=== PATIENT | male | born 1945 | race Caucasian/White ===

== ENCOUNTER → 2020-01-30 07:33 | Outpatient (CLI) | payer OTHER, SELFPAY ==
[2020-01-30 08:49] LABS: Add Manual Diff / Slide Review NO; Basophils Absolute Auto 0 /uL (0-100); Basophils Percent Auto 0.6 % (0-2); Eosinophils Absolute Auto 100 /uL (0-450); Eosinophils Percent Auto 2.2 % (2-4); Hematocrit 40.7 % (41-53); Hemoglobin 13.9 g/dL (13.5-17.5); Lymphocytes Absolute Auto 1300 /uL (1100-4500); Lymphocytes Percent Auto 30.2 % (25-40); Mean Corpuscular HGB Conc 34.1 % (30-36); Mean Corpuscular Hemoglobin 32.1 PG (26-34); Mean Corpuscular Volume 94.1 fL (80-100); Monocytes Absolute Auto 300 /uL (0-900); Monocytes Percent Auto 8.3 % (3-14); Neutrophils Absolute Auto 2400 /uL (1500-7000); Neutrophils Percent Auto 58.7 % (50-75); Platelet Count 278 X10^3/uL (150-400); Red Blood Cell Count 4.32 X10^6/uL (4.5-5.9); White Blood Cell Count 4.1 X10^3/uL (4.5-11.0)
[2020-01-30 09:10] LABS: BUN Creatinine Ratio 21.2 (6-22); Blood Urea Nitrogen 18 mg/dL (9-20); Calcium 9.7 mg/dL (8.4-10.2); Carbon Dioxide 31 mmol/L (22-32); Chloride 104 mmol/L (98-107); Cholesterol 246 mg/dL (140-199); Estimated Glomerular Filt Rate > 60.0 mL/min (>60); Glucose 97 mg/dL (80-110); HDL Cholesterol 65 mg/dL (40-60); HEMOLYSIS < 15 (0-50); LDL Cholesterol Calculated 160 mg/dL (<100); Potassium 4.4 mmol/L (3.4-5.1); Sodium 139 mmol/L (137-145); Triglycerides 106 mg/dL (35-150)
== END ==
PROVIDERS: PCP Family Medicine; Referring Provider Family Medicine; Visit Provider Family Medicine
DX: Z13.220 Encounter for screening for lipoid disorders (principal); Z82.49 Family history of ischemic heart disease and other diseases of the circulatory system
CPT/HCPCS: 36415; 80048; 80061; 85025

== ENCOUNTER → 2020-04-29 07:58 | Outpatient (CLI) | payer OTHER, SELFPAY ==
[2020-04-29 10:06] LABS: Cholesterol 182 mg/dL (140-199); HDL Cholesterol 68 mg/dL (40-60); LDL Cholesterol Calculated 103 mg/dL (<100); Triglycerides 56 mg/dL (35-150)
== END ==
PROVIDERS: PCP Family Medicine; Referring Provider Family Medicine; Visit Provider Family Medicine
DX: E78.5 Hyperlipidemia, unspecified (principal)
CPT/HCPCS: 36415; 80061

== ENCOUNTER → 2020-08-13 07:58 | Outpatient (CLI) | payer OTHER, SELFPAY ==
[2020-08-13 08:48] LABS: Add Manual Diff / Slide Review NO; Basophils Absolute Auto 0 /uL (0-100); Basophils Percent Auto 0.5 % (0-2); Eosinophils Absolute Auto 100 /uL (0-450); Eosinophils Percent Auto 2.2 % (2-4); Hematocrit 41.2 % (41-53); Lymphocytes Absolute Auto 1400 /uL (1100-4500); Lymphocytes Percent Auto 32.9 % (25-40); Mean Corpuscular HGB Conc 33.9 % (30-36); Mean Corpuscular Hemoglobin 31.6 PG (26-34); Mean Corpuscular Volume 93.3 fL (80-100); Monocytes Absolute Auto 300 /uL (0-900); Monocytes Percent Auto 7.7 % (3-14); Neutrophils Absolute Auto 2500 /uL (1500-7000); Neutrophils Percent Auto 56.7 % (50-75); Platelet Count 265 X10^3/uL (150-400); Red Blood Cell Count 4.42 X10^6/uL (4.5-5.9); Red Cell Distribution Width 12.8 % (11.6-14.8); White Blood Cell Count 4.4 X10^3/uL (4.5-11.0)
[2020-08-13 09:16] LABS: Alanine Aminotransferase 43 IU/L (<50); Albumin 4.7 g/dL (3.5-5.0); Albumin Globulin Ratio 1.6 (1.0-2.8); Alkaline Phosphatase 64 U/L (38-126); Aspartate Aminotransferase 50 IU/L (17-59); BUN Creatinine Ratio 24.1 (6-22); Bilirubin Total 0.7 mg/dL (0.2-1.3); Blood Urea Nitrogen 19 mg/dL (9-20); Calcium 9.8 mg/dL (8.4-10.2); Carbon Dioxide 26 mmol/L (22-32); Chloride 106 mmol/L (98-107); Cholesterol 179 mg/dL (140-199); Estimated Glomerular Filt Rate > 60.0 mL/min (>60); Globulin 2.9 g/dL (1.7-4.1); Glucose 105 mg/dL (80-110); HDL Cholesterol 61 mg/dL (40-60); HEMOLYSIS < 15 (0-50); LDL Cholesterol Calculated 101 mg/dL (<100); Potassium 4.1 mmol/L (3.4-5.1); Sodium 140 mmol/L (137-145); Total Protein 7.6 g/dL (6.3-8.2); Triglycerides 86 mg/dL (35-150)
[2020-08-13 09:35] LABS: Prostate Specific Antigen Scrn 0.734 ng/mL (0.1-4.0)
== END ==
PROVIDERS: PCP Family Medicine; Referring Provider Family Medicine; Visit Provider Family Medicine
DX: E78.00 Pure hypercholesterolemia, unspecified (principal); R03.0 Elevated blood-pressure reading, without diagnosis of hypertension; Z12.5 Encounter for screening for malignant neoplasm of prostate
CPT/HCPCS: 36415; 80053; 80061; 85025; G0103

== ENCOUNTER 2022-03-28 13:56 | Emergency (ER) | payer OTHER, SELFPAY ==
[2022-03-28] VITALS (7 sets, daily range): BP systolic 149–201; BP diastolic 85–107; PULSE 65–89; RESP 15–18; TEMP 36.5; O2SAT 97–99; BMI 22.4
--- NOTE | 2022-03-28 14:11 | DI.RAD.S_ITS ---
PROCEDURE: XR CHEST 1V INDICATIONS: chest pain TECHNIQUE: One view of the chest was acquired. COMPARISON: None. FINDINGS: Surgical changes and devices: None. Lungs and pleura: Lungs are clear. No pleural effusions or pneumothorax. Biapical pulmonary scarring Mediastinum: Mediastinal contours appear normal. Heart size is normal. Atherosclerotic vascular calcification noted in the aortic arch. Bones and chest wall: No suspicious bony lesions. Overlying soft tissues appear unremarkable. IMPRESSION: No acute cardiopulmonary findings Approved by: Tushar Helton M.D. on 03/28/2022 at 15:43
[2022-03-28 14:30] LABS: Add Manual Diff / Slide Review NO; Basophils Absolute Auto 0 /uL (0-100); Basophils Percent Auto 0.6 % (0-2); Eosinophils Absolute Auto 100 /uL (0-450); Eosinophils Percent Auto 1.4 % (2-4); Hematocrit 38.3 % (41-53); Hemoglobin 13.1 g/dL (13.5-17.5); Lymphocytes Absolute Auto 1200 /uL (1100-4500); Lymphocytes Percent Auto 22.9 % (25-40); Mean Corpuscular HGB Conc 34.2 % (30-36); Mean Corpuscular Hemoglobin 32.1 PG (26-34); Mean Corpuscular Volume 93.9 fL (80-100); Monocytes Absolute Auto 400 /uL (0-900); Monocytes Percent Auto 8.1 % (3-14); Neutrophils Absolute Auto 3600 /uL (1500-7000); Platelet Count 259 X10^3/uL (150-400); Red Blood Cell Count 4.08 X10^6/uL (4.5-5.9); Red Cell Distribution Width 13.3 % (11.6-14.8); White Blood Cell Count 5.4 X10^3/uL (4.5-11.0)
[2022-03-28 14:46] LABS: Prothrombin Time 11.5 SECONDS (10.1-12.7)
[2022-03-28 14:47] LABS: Alanine Aminotransferase 36 IU/L (<50); Albumin 4.6 g/dL (3.5-5.0); Albumin Globulin Ratio 1.5 (1.0-2.8); Alkaline Phosphatase 63 U/L (38-126); Aspartate Aminotransferase 41 IU/L (17-59); BUN Creatinine Ratio 26.1 (6-22); Bilirubin Total 0.5 mg/dL (0.2-1.3); Blood Urea Nitrogen 23 mg/dL (9-20); Calcium 9.1 mg/dL (8.4-10.2); Carbon Dioxide 22 mmol/L (22-32); Chloride 105 mmol/L (98-107); Creatine Kinase 321 U/L (55-170); Estimated Glomerular Filt Rate > 60 mL/min (>60); Globulin 3.1 g/dL (1.7-4.1); Glucose 123 mg/dL (80-110); Lipase 95 U/L (23-300); Magnesium 2.1 mg/dL (1.6-2.3); Potassium 4.2 mmol/L (3.4-5.1); Sodium 140 mmol/L (137-145); Total Protein 7.7 g/dL (6.3-8.2)
[2022-03-28 14:49] LABS: PTT Partial Thromboplastin Tim 30 SECONDS (26-36)
[2022-03-28 14:57] LABS: Troponin I < 0.012 ng/mL (0.01-0.034)
[2022-03-28 15:02] LABS: CKMB % Relative Index 1.8 % (1.5-5.0); Creatine Kinase MB 5.89 ng/mL (<2.37); HEMOLYSIS 20 (0-50)
--- NOTE | 2022-03-28 15:19 | ED.ARRPALP ---
HPI - Arrhythmia/Palpitations General Chief Complaint: Arrhythmia/Palpitations Stated Complaint: high pulse rate Time Seen by Provider: 03/28/22 15:03 History of Present Illness HPI narrative: Patient is a healthy 77-year-old male history of the D me a presents today with palpitations. For the last 5 days he has had some heart palpitations he has had his heart rate as high as 180. He has been monitoring his blood pressure and heart rate ever since. He says he will have palpitations and they last for just a couple of minutes and then they go away. His blood pressures have been good in the 130s and 40s even though he is hypertensive here in the emergency department. Today they called the [place] nurse who recommended that he come to the ED. He did have any new or worsening symptoms. He has not passed out he denies any numbness tingling or weakness. No shortness of breath no fever no chills no recent travel no abdominal pain no nausea or vomiting. Just intermittent palpitations. Related Data Previous Rx's Medication Instructions Recorded atorvastatin 20 mg tablet See Rx Instructions .Route 09/11/21 .COMPLEX #90 tabs Allergies Allergy/AdvReac Type Severity Reaction Status Date / Time No Known Drug Allergies Allergy Unverified 06/04/20 10:29 Review of Systems Review of Systems Narrative: GENERAL: Denies chills, fatigue, malaise, fever, sweats, travel HEENT: Denies sinus pain, ear pain, sore throat, difficulty swallowing, neck pain RESPIRATORY: Denies dyspnea, cough, wheezing, hemoptysis, sputum. CARDIOVASCULAR: See HPI GASTROINTESTINAL: Denies nausea, vomiting, abdominal pain, diarrhea, constipation, melena. : Denies dysuria, frequency, incontinence, hematuria, urinary retention, flank pain. MUSCULOSKELETAL: Denies weakness, joint pain, or bony pain SKIN: No rash, no erythema, no pruritus NEUROLOGIC: Denies weakness, dizziness, headache, numbness, change in speech, confusion PSYCHIATRIC: No concerning psychosocial issues. 12 point review of systems is negative except for those stated above and HPI Patient History Medical History Elevated blood pressure reading without diagnosis of hypertension Hearing loss Hepatitis A (~1979) Hyperlipidemia Tinnitus (~1947) White coat syndrome with high blood pressure but without hypertension Surgical History History of hand surgery (~1980) Family History Father History of heart disease Hyperlipidemia Hypertension Mother Alzheimer's disease Brother Cancer Brother History of heart disease Hyperlipidemia Grandfather Cancer Grandmother Alzheimer's disease Grandfather No problems noted. Grandmother History of heart disease Family/Other Mental health problem Exam Initial Vital Signs Initial Vital Signs: Vital Signs Temperature 97.7 F 03/28/22 14:08 Pulse Rate 85 03/28/22 14:08 Respiratory Rate 18 03/28/22 14:08 Blood Pressure 201/107 H 03/28/22 14:08 Pulse Oximetry 99 03/28/22 14:08 Oxygen Delivery Method 03/28/22 14:08 GENERAL: Pleasant well-appearing 77-year-old male and in no acute distress. HEENT: Head atraumatic,EOMI, pupils reactive, face symmetric, moist mucous membranes CARDIOVASCULAR: Regular rate and rhythm without murmurs, rubs or gallops. RESPIRATORY: Breath sounds equal bilaterally, no wheezes rales or rhonchi. ABDOMEN: Soft, nontender. Normoactive bowel sounds all 4 quadrants. No guarding or rebound. EXTREMITIES: Normal range of motion, no clubbing or edema. Neurovascularly intact NEUROLOGICAL: Alert and oriented x4.Normal gait and speech. SKIN: Warm, dry, no laceration, no petechiae, no rashes or lesions. Course Orders Ordered: ED Orders 03/28/22 14:11 XR chest 1V Stat 03/28/22 14:17 BNP [NT-proBNP (BNP-Adult 18+)] Stat Complete Blood Count AUTO DIFF Stat Comprehensive Metabolic Panel Stat D Dimer Stat Lipase Stat Magnesium Stat Partial Thromboplastin Time Stat Prothrombin Time INR Stat TSH [Thyroid Stimulating Hormone] Stat Troponin & CK Cardiac Panel Stat EKG-12 Lead Stat Vital Signs Vital signs: Vital Signs - 8 hr 03/28/22 14:08 03/28/22 15:00 03/28/22 15:05 Temperature 97.7 F Pulse Rate 85 89 78 Respiratory Rate 18 16 Blood Pressure 201/107 H Pulse Oximetry 99 97 98 Oxygen Delivery Method Room Air Room Air 03/28/22 15:05 03/28/22 15:30 03/28/22 16:00 Temperature Pulse Rate 74 Respiratory Rate 18 Blood Pressure 171/85 H 149/88 H Pulse Oximetry 98 Oxygen Delivery Method 03/28/22 16:00 03/28/22 16:30 03/28/22 17:00 Temperature Pulse Rate 67 65 Respiratory Rate 15 16 Blood Pressure 170/91 H Pulse Oximetry 98 97 Oxygen Delivery Method 03/28/22 17:00 Temperature Pulse Rate 68 Respiratory Rate Blood Pressure Pulse Oximetry 98 Oxygen Delivery Method MDM - Arrhythmia/Palpitations Lab Data Result diagrams: 03/28/22 14:17 03/28/22 14:17 Labs: Lab Results 03/28/22 03/28/22 03/28/22 Range/Units 14:17 14:17 14:17 WBC 5.4 (4.5-11.0) X10^3/uL RBC 4.08 L (4.5-5.9) X10^6/uL Hgb 13.1 L (13.5-17.5) g/dL Hct 38.3 L (41-53) % MCV 93.9 (80-100) fL MCH 32.1 (26-34) PG MCHC 34.2 (30-36) % RDW 13.3 (11.6-14.8) % Plt Count 259 (150-400) X10^3/uL Neut % (Auto) 67.0 (50-75) % Lymph % (Auto) 22.9 L (25-40) % [place] % (Auto) 8.1 (3-14) % Eos % (Auto) 1.4 L (2-4) % Baso % (Auto) 0.6 (0-2) % Neut # (Auto) 3600 (9136-5883) /uL Lymph # (Auto) 1200 (0542-3191) /uL [place] # (Auto) 400 (0-900) /uL Eos # (Auto) 100 (0-450) /uL Baso # (Auto) 0 (0-100) /uL PT 11.5 (10.1-12.7) SECONDS INR 1.0 (0.9-1.3) APTT 30 (26-36) SECONDS D-Dimer (<500) ng/ml Sodium 140 (137-145) mmol/L Potassium 4.2 (3.4-5.1) mmol/L Chloride 105 (98-107) mmol/L Carbon Dioxide 22 (22-32) mmol/L BUN 23 H (9-20) mg/dL Creatinine 0.88 (0.66-1.25) mg/dL Estimated GFR > 60 (>60) mL/min BUN/Creatinine Ratio 26.1 H (6-22) Glucose 123 H (80-110) mg/dL Calcium 9.1 (8.4-10.2) mg/dL Magnesium 2.1 (1.6-2.3) mg/dL Total Bilirubin 0.5 (0.2-1.3) mg/dL AST 41 (17-59) IU/L ALT 36 (<50) IU/L Alkaline Phosphatase 63 (38-126) U/L Total Creatine Kinase 321 H (55-170) U/L CK-MB (CK-2) 5.89 H (<2.37) ng/mL CK-MB (CK-2) Rel Index 1.8 (1.5-5.0) % Troponin I < 0.012 (0.01-0.034) ng/mL NT-Pro-B Natriuret Pep (<450) pg/mL Total Protein 7.7 (6.3-8.2) g/dL Albumin 4.6 (3.5-5.0) g/dL Globulin 3.1 (1.7-4.1) g/dL Albumin/Globulin Ratio 1.5 (1.0-2.8) Lipase 95 (23-300) U/L TSH (0.47-4.68) uIU/mL 03/28/22 03/28/22 03/28/22 Range/Units 14:17 14:17 14:17 WBC (4.5-11.0) X10^3/uL RBC (4.5-5.9) X10^6/uL Hgb (13.5-17.5) g/dL Hct (41-53) % MCV (80-100) fL MCH (26-34) PG MCHC (30-36) % RDW (11.6-14.8) % Plt Count (150-400) X10^3/uL Neut % (Auto) (50-75) % Lymph % (Auto) (25-40) % [place] % (Auto) (3-14) % Eos % (Auto) (2-4) % Baso % (Auto) (0-2) % Neut # (Auto) (8855-2039) /uL Lymph # (Auto) (5415-1710) /uL [place] # (Auto) (0-900) /uL Eos # (Auto) (0-450) /uL Baso # (Auto) (0-100) /uL PT (10.1-12.7) SECONDS INR (0.9-1.3) APTT (26-36) SECONDS D-Dimer 461 (<500) ng/ml Sodium (137-145) mmol/L Potassium (3.4-5.1) mmol/L Chloride (98-107) mmol/L Carbon Dioxide (22-32) mmol/L BUN (9-20) mg/dL Creatinine (0.66-1.25) mg/dL Estimated GFR (>60) mL/min BUN/Creatinine Ratio (6-22) Glucose (80-110) mg/dL Calcium (8.4-10.2) mg/dL Magnesium (1.6-2.3) mg/dL Total Bilirubin (0.2-1.3) mg/dL AST (17-59) IU/L ALT (<50) IU/L Alkaline Phosphatase (38-126) U/L Total Creatine Kinase (55-170) U/L CK-MB (CK-2) (<2.37) ng/mL CK-MB (CK-2) Rel Index (1.5-5.0) % Troponin I (0.01-0.034) ng/mL NT-Pro-B Natriuret Pep 125 (<450) pg/mL Total Protein (6.3-8.2) g/dL Albumin (3.5-5.0) g/dL Globulin (1.7-4.1) g/dL Albumin/Globulin Ratio (1.0-2.8) Lipase (23-300) U/L TSH 1.36 (0.47-4.68) uIU/mL Imaging Data Chest x-ray: Radiologist's Impresson: [address] [address] XRay Report Signed Patient: Elpidio Crane MR#: [id number] : 1945 Acct:[id number] Age/Sex: 77 / M Date of Service: 03/28/22 Loc: ED Accession Number: [id number] ?? Procedure: XR chest 1V Ordering Provider: Imelda Xiao D.O. PROCEDURE:? XR CHEST 1V ? INDICATIONS:? chest pain ? TECHNIQUE:? One view of the chest was acquired.? ? COMPARISON:? None. ? FINDINGS:? ? Surgical changes and devices:? None.? ? Lungs and pleura:? Lungs are clear.? No pleural effusions or pneumothorax.? Biapical pulmonary scarring ? Mediastinum:? Mediastinal contours appear normal.? Heart size is normal.? Atherosclerotic vascular calcification noted in the aortic arch. ? Bones and chest wall:? No suspicious bony lesions.? Overlying soft tissues appear unremarkable.? ? IMPRESSION:? No acute cardiopulmonary findings ? ? ? Approved by: Tushar Helton M.D. on 03/28/2022 at 15:43? ECG Data Interpretation: Normal sinus rhythm rate 79 VA interval 172 his QRS [address] changes no T-wave inversions MDM Narrative Medical decision making narrative: The patient overall appears well. Blood work is reassuring. He has had palpitations ongoing this week but no cause of why. At this time recommend outpatient Holter monitor. He has no evidence of coronary artery syndrome blood work is overall reassuring.. Chest x-ray is negative as well. He has a negative D-dimer unlikely to be pulmonary embolism. He is not hypoxic. He has no significant shortness of breath BNP is negative. No sign of infection. He really has no risk factors. Recommend at continue to check his blood pressure and heart rate Discharge Plan Departure Patient Disposition: Home Clinical Impression: Palpitations Instructions: Arrhythmias Activity Restrictions/Additional Instructions: *You have been diagnosed with palpitation *What to do: At this time I do recommend he wear Holter monitor to monitor your heart rate as an outpatient. Her primary care provider can help you with that. Please continue to monitor blood pressure and heart rate. You may just check her blood pressure 1 to 2 times daily *Continue to take medications as directed *Follow up with your primary care provider in 2-3 days or call [phone] *Return to ER if you should have persistent heart rate greater than 120 and lasting longer than 30 minutes, chest pain shortness of breath passing out or any new, worsening or concerning symptoms Prescriptions: No Action atorvastatin 20 mg tablet See Rx Instructions .ROUTE .COMPLEX Qty: 90 1RF Dose Instruction: Take 1 tablet (20 mg) by mouth at bedtime Rx Instructions: Take 1 tablet (20 mg) by mouth at bedtime Referrals: Carlos Daniels DO [Primary Care Provider] - Visit Report Forms: Patient Portal/API
[2022-03-28 16:29] LABS: D Dimer 461 ng/ml (<500)
[2022-03-28 16:41] LABS: NT-proBNP (BNP-Adult 18+) 125 pg/mL (<450)
[2022-03-28 17:10] LABS: Thyroid Stimulating Hormone 1.36 uIU/mL (0.47-4.68)
== END 2022-03-28 17:16 | disposition home or self-care (01) ==
PROVIDERS: Emergency Provider Emergency Medicine; PCP Family Medicine
DX: R00.2 Palpitations (principal); R07.9 Chest pain, unspecified
CPT/HCPCS: 71045; 80053; 82550; 82553; 83690; 83735; 83880; 84443; 84484; 85025; 85379; 85610; 85730; 93005; 99282; 99284

== ENCOUNTER → 2022-04-23 13:12 | Outpatient (CLI) | payer OTHER, SELFPAY ==
--- NOTE | 2022-05-20 07:41 | P.HOLT.S_ITS ---
Proposal Coordinator Report Referral & Results Date Patient Seen: 04/23/22 Requesting provider: Carlos Daniels Indication: Palpitations Duration of monitoring (days): 14 Diary information: There were no patient events to review Data: Minimum heart rate identified was 52 beats per minute at 05:56 on 05/03/2022 Maximum sinus heart rate was 152 beats per minute at 07:41 on 04/30/2022 Maximum overall heart rate was 174 beats per minute at 14:56 on 04/24/2022 during an episode of atrial fibrillation Less than 1% of identified beats were supraventricular ectopic in origin which would classify them as rare Approximately 1.1% of identified beats were ventricular ectopic in origin which would classify them as occasional this included up to 10 seconds of ventricular trigeminy and 5 seconds of ventricular bigeminy There were 55 runs of SVT with the fastest being a 5 beat run at a rate of 152 beats per minute and the longest lasting 9 minutes 25 seconds at a rate of 122 beats per minute which suggest possibly atrial tachycardia rather than true SVT Atrial fibrillation also occurred with heart rate ranging between 72 and 174 beats per minute with the longest duration lasting 1 hour 3 minutes. Overall atrial fibrillation was identified in less than 1% of identified beats There was 1 episode of nonsustained monomorphic ventricular tachycardia that was 5 beats in duration at a rate of 119 beats per minute There were no pauses of 3 seconds or longer identified on this study Impression: 14 day color television console monitor without patient events to correlate with anyanyone particular dysrhythmia makes it very difficult to identify source of symptoms Patient did have episodes of atrial fibrillation although overall burden was less than 1%, as above Patient also with very rare very brief episodes of SVT Patient also with occasional PVCs Clinical correlation suggested
== END ==
PROVIDERS: PCP Family Medicine; Referring Provider Family Medicine; Visit Provider Family Medicine
DX: R00.2 Palpitations (principal); R00.0 Tachycardia, unspecified
CPT/HCPCS: 93246; 93248

== ENCOUNTER → 2022-05-21 10:32 | Outpatient (CLI) | payer OTHER, SELFPAY ==
[2022-05-21 12:03] LABS: COVID19 -Nasal RAPID Negative (Negative)
--- NOTE | 2022-05-21 14:15 | PM.TREADMILL ---
Cardiac Stress Test Report Referral & Results Date Patient Seen: 05/21/22 Requesting provider: Carlos Daniels Indication: Chest symptoms Rest ECG: Unremarkable Procedure Note: Today following both written and verbal informed consent the patient was exercised according to a standard Henry protocol patient went for a total of 4 minutes 42 seconds achieving a maximum heart rate of 144 maximum systolic blood pressure of 200. This is approximately 7.0 METS. Exercise was terminated at this point because of targets were met. Patient was also given Cardiolite through a previously started Hep-Lock IV by the diagnostic imaging staff approximately 1 minute prior to the cessation of exercise. There are no ST-T segment changes identified. At end exercise early recovery patient had some bursts of SVT 4 and 5 beats in duration with frequent PACs in recovery Function aerobic impairment rates about 30% on the sedentary scale, however patient could probably have gone longer on the treadmill was stopped early because he was struggling to keep up and he had reached heart rate and blood pressure targets Impression: No evidence of ischemia. Probably average exercise capacity. Supraventricular dysrhythmia as above Please see perfusion imaging report as well Please note: Actual ECG tracings can be found in the PACS system.
--- NOTE | 2022-05-21 19:22 | DI.NM.S_ITS ---
DATE OF SERVICE: 05/21/2022 PROCEDURE: Exercise perfusion study. INDICATION: Palpitation, tachycardia. RADIOPHARMACEUTICAL: 24.7 millicurie technetium-99m Myoview IV was injected at stress and 8.2 millicurie technetium-99m Myoview IV was injected at rest. CARDIAC STRESS: The patient underwent exercise perfusion study under the supervision of an attending staff using standard intravenous standard Henry protocol. She walked on Henry protocol for 4 minutes and 42 seconds, achieved maximum heart rate of 144, which was 99 percent of target heart rate. Resting blood pressure 148/82 mmHg. Peak blood pressure 200/88 mmHg. Baseline rhythm was sinus. During stress, no convincing ischemic changes seen. No significant arrhythmias seen. No anginal symptoms. Achieved 7 METs of workload. MARIJA 30 percent. RAW DATA: There is increased subdiaphragmatic activity. GATED STUDY: Stress LV ejection fraction 68 percent without any obvious wall motion abnormalities. Stress end-diastolic volume 107 mL. TID ratio 0.93, which is within normal limits. Lung/heart ratio 0.29, which is within normal limits. MYOCARDIAL PERFUSION SCAN: Stress supine, resting supine and stress prone images were compared to each other. Stress supine and resting supine images revealed small size, mildly decreased perfusion of inferior wall extending into the basal inferoseptum, which got completely resolved during stress prone images, suggestive of diaphragmatic tissue attenuation artifact. No convincing ischemia or infarction. CONCLUSION: I will call this study a normal myocardial perfusion study with evidence of diaphragmatic tissue attenuation artifact, which got resolved during stress prone images. Diminished exercise tolerance. Functional aerobic impairment positive 30 percent on active scale. Preserved left ventricular function. No significant arrhythmias or ischemic changes. Overall, low-risk myocardial perfusion scan. Elpidio Crane - JAMES/kalpana/aysha doc#: [id number]/job#: [id number] dd: 05/21/2022 17:07:00 dt: 05/21/2022 19:06:00 DICTATING MD/COPIES TO: Princess Mcbride MD COPIES MNE: ABDIAZIZ;
== END ==
PROVIDERS: PCP Family Medicine; Referring Provider Family Medicine; Visit Provider Family Medicine
DX: R00.2 Palpitations (principal); R00.0 Tachycardia, unspecified; Z20.822 Contact with and (suspected) exposure to COVID-19
CPT/HCPCS: 78452; 87635; 93016; 93017; 93018; A9502

== ENCOUNTER → 2022-06-26 13:36 | Outpatient (CLI) | payer OTHER, SELFPAY ==
--- NOTE | 2022-06-26 | DI.ECHO.S_ITS ---
[facility] +---------+ : : [address] : : : : [id number] : : : : Phone: [phone] Echocardiogram Report + + :Name: JACQUE PRESSLEY Study Date: 06/26/2022 Height: 72 in : :[facility] ReadingLocation: Weight: 185 lb : : Gender: Male BSA: 2.1 m2 : :: 1945 Age: 77 yrs BP: 126/79 mmHg: :Reason For Study: ATRIAL FIBRILLATION : :Ordering Physician: JOAQUÍN, : :PEPE Performed By: Taryn Daily : :Referring: PEPE [place]AM : + + Interpretation Summary 1) Normal left ventricular thickness and size with low normal systolic function (EF 50-55%). 2) Mildly enlarged right ventricle with normal function. 3) No significant valvular abnormalities. 4) No prior Echo available for comparison. Procedure: A two-dimensional transthoracic echocardiogram with color flow and Doppler was performed. The study quality was technically adequate. There is no prior echocardiogram noted for this patient. The patient was in sinus rhythm with heart rates between 65-75 bpm during the exam. Left Ventricle: The left ventricle is normal in size and wall thickness. The ejection fraction is estimated to be 50-55%. There are no focal wall motion abnormalities. Right Ventricle: The right ventricle is mildly dilated. The right ventricular systolic function is normal. Atria: The left atrial size is normal. Right atrial size is normal. There is no Doppler evidence for an interatrial shunt. Mitral Valve: The mitral valve leaflets appear mildly thickened, but open well. There is trace mitral regurgitation. Aortic Valve: The aortic valve is trileaflet. The aortic valve is mildly calcified. There is no aortic valve stenosis. There is trace aortic regurgitation. Tricuspid Valve: The tricuspid valve is normal in structure and function. There is trace tricuspid regurgitation. Pulmonary artery pressures cannot be estimated because of the lack of a measurable TR jet velocity. Pulmonic Valve: The pulmonic valve is not well visualized. There is trace pulmonic regurgitation. Great Vessels: The aortic root is normal size. The dimensions of the ascending aorta are normal. The IVC is of normal diameter and collapses greater than 50% with a sniff. This suggests a low right atrial pressure of 3 mm Hg. Pericardium/ Pleura There is no pericardial effusion. There is no pleural effusion. MMode/2D Measurements & Calculations LVIDd: 4.8 cm LVOT diam: 2.2 cm LVIDs: 3.2 cm Ao root diam: 3.0 cm FS: 32.6 % asc Aorta Diam: 2.9 cm IVSd: 0.77 cm Ao Arch Diam (Prox Trans): 2.8 cm LVPWd: 0.80 cm LV tejada. diameter/BSA (cm/m^2): 2.3 LV sys. diameter/BSA (cm/m^2): 1.6 LA A2 area: 20.8 cm2 RA long axis: 5.0 cm LA A4 area: 18.6 cm2 RA area: 16.7 cm2 LA length (vol): 5.1 cm RA vol: 47.5 ml LA vol: 63.8 ml RA : 23.0 ml/m2 LA vol index: 31.0 ml/m2 IVC diam: 1.5 cm RVD1 (basal): 4.8 cm RVD2 (mid): 3.8 cm TAPSE: 2.2 cm Doppler Measurements & Calculations Ao V2 max: 156.6 cm/sec LVOT Max Hever: 117.0 cm/sec Ao V2 mean: 116.4 cm/sec LV V1 max P.5 mmHg Ao max P.8 mmHg LV V1 VTI: 24.2 cm Ao mean P.9 mmHg BECCA(I,D): 2.7 cm2 Ao V2 VTI: 34.1 cm BECCA(V,D): 2.9 cm2 sev ratio: 0.71 BECCA indexed to BSA (cm^2/m^2): 1.3 MV E max hever: 85.4 cm/sec PA V2 max: 69.8 cm/sec MV A max hever: 105.6 cm/sec PA V2 mean: 50.0 cm/sec MV E/A: 0.81 PA mean P.1 mmHg Med Peak E' Hever: 8.2 cm/sec PA pr(Accel): 27.6 mmHg E/E' med: 10.4 Lat Peak E' Hever: 10.5 cm/sec E/E' lat: 8.1 E/e' average: 9.3 MV dec time: 0.22 sec SV(LVOT): 92.6 ml Reading Physician:03:18 PM
== END ==
PROVIDERS: PCP Family Medicine; Referring Provider Internal Medicine Cardiovascular Disease; Visit Provider Internal Medicine Cardiovascular Disease
DX: I48.0 Paroxysmal atrial fibrillation (principal); I47.29 Other ventricular tachycardia
CPT/HCPCS: 93306

== ENCOUNTER → 2022-08-12 07:59 | Outpatient (CLI) | payer OTHER, SELFPAY ==
[2022-08-12 08:29] LABS: Add Manual Diff / Slide Review NO; Basophils Absolute Auto 0 /uL (0-100); Basophils Percent Auto 0.4 % (0-2); Eosinophils Absolute Auto 100 /uL (0-450); Hematocrit 40.3 % (41-53); Hemoglobin 13.5 g/dL (13.5-17.5); Lymphocytes Absolute Auto 1200 /uL (1100-4500); Lymphocytes Percent Auto 30.3 % (25-40); Mean Corpuscular HGB Conc 33.6 % (30-36); Mean Corpuscular Hemoglobin 31.4 PG (26-34); Mean Corpuscular Volume 93.6 fL (80-100); Monocytes Absolute Auto 300 /uL (0-900); Monocytes Percent Auto 8.2 % (3-14); Neutrophils Absolute Auto 2300 /uL (1500-7000); Neutrophils Percent Auto 58.1 % (50-75); Platelet Count 283 X10^3/uL (150-400); Red Blood Cell Count 4.31 X10^6/uL (4.5-5.9); Red Cell Distribution Width 12.8 % (11.6-14.8)
[2022-08-12 09:13] LABS: BUN Creatinine Ratio 20.5 (6-22); Blood Urea Nitrogen 18 mg/dL (9-20); Calcium 9.4 mg/dL (8.4-10.2); Carbon Dioxide 27 mmol/L (22-32); Chloride 103 mmol/L (98-107); Cholesterol 169 mg/dL (140-199); Estimated Glomerular Filt Rate > 60 mL/min (>60); Glucose 88 mg/dL (80-110); HDL Cholesterol 66 mg/dL (40-60); HEMOLYSIS < 15 (0-50); LDL Cholesterol Calculated 92 mg/dL (<100); Potassium 4.3 mmol/L (3.4-5.1); Sodium 139 mmol/L (137-145); Triglycerides 55 mg/dL (35-150)
== END ==
PROVIDERS: PCP Family Medicine; Referring Provider Internal Medicine Cardiovascular Disease; Visit Provider Internal Medicine Cardiovascular Disease
DX: E78.5 Hyperlipidemia, unspecified (principal); I10 Essential (primary) hypertension
CPT/HCPCS: 36415; 80048; 80061; 85025

== ENCOUNTER → 2022-09-03 11:15 | Outpatient (CLI) | payer OTHER, SELFPAY ==
[2022-09-03 12:15] LABS: Hematocrit 38.6 % (41-53); Mean Corpuscular HGB Conc 33.7 % (30-36); Mean Corpuscular Hemoglobin 31.5 PG (26-34); Mean Corpuscular Volume 93.5 fL (80-100); Platelet Count 253 X10^3/uL (150-400); Red Blood Cell Count 4.13 X10^6/uL (4.5-5.9); Red Cell Distribution Width 13.2 % (11.6-14.8)
[2022-09-03 12:36] LABS: BUN Creatinine Ratio 20.2 (6-22); Blood Urea Nitrogen 17 mg/dL (9-20); Calcium 9.4 mg/dL (8.4-10.2); Carbon Dioxide 23 mmol/L (22-32); Chloride 108 mmol/L (98-107); Estimated Glomerular Filt Rate > 60 mL/min (>60); Glucose 97 mg/dL (80-110); HEMOLYSIS < 15 (0-50); Sodium 138 mmol/L (137-145)
[2022-09-03 13:06] LABS: Potassium 4.2 mmol/L (3.4-5.1)
[2022-09-03 14:20] LABS: TSH w/ Reflex to FT4 1.78 uIU/mL (0.47-4.68)
== END ==
PROVIDERS: PCP Family Medicine; Referring Provider Nurse Practitioner Family; Visit Provider Nurse Practitioner Family
DX: I48.0 Paroxysmal atrial fibrillation (principal); I47.29 Other ventricular tachycardia; R42 Dizziness and giddiness
CPT/HCPCS: 36415; 80048; 84443; 85027

== ENCOUNTER 2022-11-18 10:46 | Day surgery (SDC) | payer OTHER, SELFPAY ==
--- NOTE | 2022-11-18 | PATH_ITS ---
[facility] Accession Number: [id number] No. of containers..02 Tissue . 01 Material submitted: . PART A: colon - ASCENDING POLYP PART B: colon - TRANSVERSE POLYP . 01 Diagnosis: A. Ascending Colon, Polypectomy: Sessile serrated adenoma. . B. Transverse Colon, Polypectomy: Tubular adenoma. MRV 11/26/2022 1430 Local . 01 Electronically signed: . Elenita Baneulos MD, Pathologist NPI- [id number] . 01 Gross description: . A. Received in formalin labeled with the patient's name, , and ascending polyp, and consists of two yan soft tissue fragments ranging from 0.5 to 1.2 cm in greatest dimension. Submitted entirely in cassette A1. B. Received in formalin labeled with the patient's name, , and transverse polyp, and consists of two yan soft tissue fragments ranging from 0.1 to 1.3 cm in greatest dimension with the largest fragment bisected. Submitted entirely in cassette B1. ([id number]) /FROILAN 11/25/2022 1050 Local . 01 Pathologist provided ICD-10: D12.2, D12.3 . 01 CPT . 391594, 387943 Specimen Comment: A courtesy copy of this report has been sent to [phone] Performed at: 01 [facility] [address] [place] [address], [place], [place] [id number] MD Roberto Horne MD Phone: [phone]
[2022-11-18 11:02] VITALS: BP 142/81; PULSE 90; RESP 16; TEMP 36.3; O2SAT 98; BMI 24.4
[2022-11-18] MEDS: LACTATED RINGERS 1,000 ML 42 ML IV (11:26)
--- NOTE | 2022-11-18 11:50 | PM.HP.1 ---
History of Present Illness History of Present Illness Date Patient Seen: 11/18/22 Time Patient Seen: 11:50 Chief complaint: Colonoscopy Narrative: Elpidio is a 77 year old man who is here for a colonoscopy. His last one was approximately 2014. He did become dizzy a few hours after starting the prep last night and fell, hitting his head. [facility] Medical History (Updated 11/18/22 @ 11:51 by Hunter Qureshi MD) Elevated blood pressure reading without diagnosis of hypertension Hearing loss Hepatitis A (~1979) Hyperlipidemia Normocytic anemia NSVT (nonsustained ventricular tachycardia) Paroxysmal atrial fibrillation Positional lightheadedness Tinnitus (~1946) White coat syndrome with high blood pressure but without hypertension Surgical History History of hand surgery (~1980) Family History Father History of heart disease Hyperlipidemia Hypertension Mother Alzheimer's disease Brother Cancer Brother History of heart disease Hyperlipidemia Grandfather Cancer Grandmother Alzheimer's disease Grandfather No problems noted. Grandmother History of heart disease Family/Other Mental health problem Social History household members: spouse Smoking Status: Never smoker alcohol intake: current Meds Home Medications and Allergies Home Medications Medication Instructions Recorded Confirmed Type dabigatran etexilate 150 mg 150 mg PO DAILY 09/03/22 11/18/22 History capsule (Pradaxa) rosuvastatin 10 mg tablet 10 mg PO DAILY 09/03/22 10/02/22 History metoprolol succinate 50 mg 50 mg PO DAILY 10/02/22 11/18/22 History tablet,extended release 24 hr Allergies Allergy/AdvReac Type Severity Reaction Status Date / Time No Known Drug Allergies Allergy Verified 11/18/22 11:01 Exam Vital Signs (past 8 hours): - 11/18/22 11:02 Temperature 97.3 F L Pulse Rate 90 Respiratory Rate 16 Blood Pressure 142/81 H Pulse Oximetry 98 Oxygen Delivery Method Room Air Oxygen Delivery Method Room Air Const General: healthy appearing Assessment & Plan Assessment and plan (1) Colon cancer screening: Status: Acute Plan We reviewed the risks and benefits of colonoscopy for colon cancer screening. Because he became lightheaded we will check an EKG before we proceed.
[2022-11-18 12:38] LABS: Add Manual Diff / Slide Review NO; Basophils Absolute Auto 0 /uL (0-100); Basophils Percent Auto 0.3 % (0-2); Eosinophils Absolute Auto 100 /uL (0-450); Eosinophils Percent Auto 1.4 % (2-4); Hematocrit 39.2 % (41-53); Hemoglobin 13.4 g/dL (13.5-17.5); Lymphocytes Absolute Auto 1500 /uL (1100-4500); Lymphocytes Percent Auto 31.8 % (25-40); Mean Corpuscular HGB Conc 34.1 % (30-36); Mean Corpuscular Hemoglobin 31.9 PG (26-34); Mean Corpuscular Volume 93.5 fL (80-100); Monocytes Absolute Auto 400 /uL (0-900); Monocytes Percent Auto 7.8 % (3-14); Neutrophils Absolute Auto 2800 /uL (1500-7000); Neutrophils Percent Auto 58.7 % (50-75); Platelet Count 261 X10^3/uL (150-400); Red Blood Cell Count 4.19 X10^6/uL (4.5-5.9); Red Cell Distribution Width 12.9 % (11.6-14.8); White Blood Cell Count 4.8 X10^3/uL (4.5-11.0)
[2022-11-18 12:55] LABS: Alanine Aminotransferase 40 IU/L (<50); Albumin 4.6 g/dL (3.5-5.0); Albumin Globulin Ratio 1.6 (1.0-2.8); Alkaline Phosphatase 61 U/L (38-126); Aspartate Aminotransferase 43 IU/L (17-59); BUN Creatinine Ratio 20.3 (6-22); Bilirubin Total 0.9 mg/dL (0.2-1.3); Blood Urea Nitrogen 15 mg/dL (9-20); Calcium 9.3 mg/dL (8.4-10.2); Carbon Dioxide 24 mmol/L (22-32); Chloride 101 mmol/L (98-107); Estimated Glomerular Filt Rate > 60 mL/min (>60); Globulin 2.9 g/dL (1.7-4.1); Glucose 97 mg/dL (80-110); HEMOLYSIS < 15 (0-50); Potassium 3.9 mmol/L (3.4-5.1); Sodium 135 mmol/L (137-145); Total Protein 7.5 g/dL (6.3-8.2)
--- NOTE | 2022-11-18 13:41 | PM.OP.COLON ---
Operative Date/Time/Diagnoses Date of procedure: 11/18/22 Time of procedure: 13:41 Pre-op diagnosis: Colon cancer screening Post-op diagnosis: same Procedure & Clinicians Study performed: Colonoscopy Same procedure as scheduled: Yes Surgeon: Hunter Qureshi Procedure Notes Procedure in detail: Surgeon: Hunter Qureshi MD Anesthesia: Diogo Lunsford [employer] Procedure: The patient was brought to the endoscopy suite, placed in left lateral decubitus position. The patient was connected to monitoring devices. A time-out was performed. Sedation was administered. Once the patient was adequately sedated, a digital rectal exam was performed and was normal. The scope was then inserted and advanced to the cecum where the appendiceal orifice was identified and photographed. The scope was then slowly withdrawn over greater than 6 minutes. The mucosa was thoroughly inspected. There was a 7 mm polyp in the ascending colon removed with a cold snare. There was a 9 mm polyp in the transverse colon and a 5 mm polyp in the transverse colon both removed with cold snare and sent together. The scope was retroflexed in the rectum. No other abnormalities were seen. The scope was straightened and removed. The patient was awakened and brought to recovery. Scope withdrawal time: 14 minutes Sedation time: 21 minutes EBL: 3 mL Findings: 7 mm polyp in the ascending colon, 9 mm polyp in the transverse colon and 5 mm polyp in the transverse colon Post-procedure Disposition: PACU
[2022-11-18 13:43] VITALS: BP 92/61; PULSE 66; RESP 18; TEMP 36.2; O2SAT 97
[2022-11-18 13:48] VITALS: BP 88/58; PULSE 64; RESP 13; O2SAT 96
[2022-11-18 13:53] VITALS: BP 96/61; PULSE 65; RESP 13; O2SAT 96
[2022-11-18 14:04] VITALS: BP 129/79; PULSE 77; RESP 18; TEMP 36.3; O2SAT 96
[2022-11-18 14:07] VITALS: BP 122/81; PULSE 73; RESP 17; TEMP 36.3; O2SAT 96
--- NOTE | 2022-11-18 14:30 | SUR.PHASEII ---
1425 Pt ready for discharge. Waiting for ride.
== END 2022-11-18 14:42 | disposition home or self-care (01) ==
PROVIDERS: PCP Family Medicine; Referring Provider Surgery; Visit Provider Surgery
PROC: 0DJD8ZZ Inspection of Lower Intestinal Tract, Via Natural or Artificial Opening Endoscopic (ICD-10-PCS; CPT 45378; principal; 2022-11-18 12:00)
DX: Z12.11 Encounter for screening for malignant neoplasm of colon (principal); R42 Dizziness and giddiness; I48.0 Paroxysmal atrial fibrillation; D12.2 Benign neoplasm of ascending colon; D12.3 Benign neoplasm of transverse colon
CPT/HCPCS: 45385; 80053; 85025; 93005; 93010; J2704

== ENCOUNTER → 2023-10-04 07:59 | Outpatient (CLI) | payer OTHER, SELFPAY ==
[2023-10-04 08:16] LABS: Add Manual Diff / Slide Review NO; Basophils Absolute Auto 0 /uL (0-100); Basophils Percent Auto 0.4 % (0-2); Eosinophils Absolute Auto 100 /uL (0-450); Eosinophils Percent Auto 2.7 % (2-4); Hematocrit 38.2 % (41-53); Hemoglobin 12.8 g/dL (13.5-17.5); Lymphocytes Absolute Auto 1300 /uL (1100-4500); Lymphocytes Percent Auto 26.7 % (25-40); Mean Corpuscular HGB Conc 33.6 % (30-36); Mean Corpuscular Hemoglobin 31.9 PG (26-34); Mean Corpuscular Volume 94.9 fL (80-100); Monocytes Absolute Auto 400 /uL (0-900); Neutrophils Absolute Auto 2900 /uL (1500-7000); Neutrophils Percent Auto 61.2 % (50-75); Platelet Count 244 X10^3/uL (150-400); Red Blood Cell Count 4.02 X10^6/uL (4.5-5.9); Red Cell Distribution Width 12.9 % (11.6-14.8); White Blood Cell Count 4.8 X10^3/uL (4.5-11.0)
[2023-10-04 08:30] LABS: Alanine Aminotransferase 69 IU/L (<50); Albumin 4.7 g/dL (3.5-5.0); Albumin Globulin Ratio 1.7 (1.0-2.8); Alkaline Phosphatase 64 U/L (38-126); Aspartate Aminotransferase 47 IU/L (17-59); BUN Creatinine Ratio 20.2 (6-22); Bilirubin Total 0.6 mg/dL (0.2-1.3); Blood Urea Nitrogen 17 mg/dL (9-20); Calcium 9.3 mg/dL (8.4-10.2); Carbon Dioxide 26 mmol/L (22-32); Chloride 109 mmol/L (98-107); Cholesterol 155 mg/dL (140-199); Estimated Glomerular Filt Rate > 60 mL/min (>60); Globulin 2.7 g/dL (1.7-4.1); Glucose 90 mg/dL (80-110); HDL Cholesterol 60 mg/dL (40-60); HEMOLYSIS < 15 (0-50); LDL Cholesterol Calculated 82 mg/dL (<100); Potassium 4.5 mmol/L (3.4-5.1); Sodium 140 mmol/L (137-145); Total Protein 7.4 g/dL (6.3-8.2); Triglycerides 67 mg/dL (35-150)
[2023-10-04 09:00] LABS: Prostate Specific Antigen Scrn 0.725 ng/mL (0.1-4.0)
== END ==
PROVIDERS: PCP Family Medicine; Referring Provider Internal Medicine Cardiovascular Disease; Visit Provider Internal Medicine Cardiovascular Disease
DX: Z12.5 Encounter for screening for malignant neoplasm of prostate (principal); E78.5 Hyperlipidemia, unspecified; I10 Essential (primary) hypertension; D64.9 Anemia, unspecified
CPT/HCPCS: 36415; 80053; 80061; 85025; G0103

== ENCOUNTER → 2024-09-19 06:57 | Outpatient (CLI) | payer OTHER, SELFPAY ==
[2024-09-19 08:20] LABS: Hematocrit 42.4 % (41-53); Hemoglobin 14.5 g/dL (13.5-17.5); Mean Corpuscular HGB Conc 34.1 % (30-36); Mean Corpuscular Hemoglobin 32.6 PG (26-34); Mean Corpuscular Volume 95.6 fL (80-100); Platelet Count 266 X10^3/uL (150-400); Red Blood Cell Count 4.43 X10^6/uL (4.5-5.9); Red Cell Distribution Width 13.1 % (11.6-14.8)
[2024-09-19 08:52] LABS: BUN Creatinine Ratio 23.2 (6-22); Blood Urea Nitrogen 22 mg/dL (9-20); Calcium 9.5 mg/dL (8.4-10.2); Carbon Dioxide 21 mmol/L (22-32); Chloride 105 mmol/L (98-107); Cholesterol 192 mg/dL (140-199); Estimated Glomerular Filt Rate > 60 mL/min (>60); Glucose 103 mg/dL (70-99); HDL Cholesterol 57 mg/dL (40-60); HEMOLYSIS < 15 (0-50); LDL Cholesterol Calculated 117 mg/dL (<100); Potassium 4.9 mmol/L (3.4-5.1); Sodium 137 mmol/L (137-145); Triglycerides 89 mg/dL (35-150)
== END ==
PROVIDERS: PCP Family Medicine; Referring Provider Internal Medicine Cardiovascular Disease; Visit Provider Internal Medicine Cardiovascular Disease
DX: E78.5 Hyperlipidemia, unspecified (principal); I10 Essential (primary) hypertension
CPT/HCPCS: 36415; 80048; 80061; 85027

== ENCOUNTER → 2024-12-02 08:35 | Outpatient (CLI) | payer OTHER, SELFPAY ==
[2024-12-02 09:41] LABS: Add Manual Diff / Slide Review NO; Hematocrit 41.6 % (41-53); Hemoglobin 14.2 g/dL (13.5-17.5); Lymphocytes Absolute Auto 1700 /uL (1100-4500); Mean Corpuscular HGB Conc 34.2 % (30-36); Mean Corpuscular Hemoglobin 32.7 PG (26-34); Mean Corpuscular Volume 95.6 fL (80-100); Platelet Count 291 X10^3/uL (150-400)
[2024-12-02 10:01] LABS: Blood Urea Nitrogen 18 mg/dL (9-20); Calcium 9.6 mg/dL (8.4-10.2); Carbon Dioxide 25 mmol/L (22-32); Chloride 104 mmol/L (98-107); Estimated Glomerular Filt Rate > 60 mL/min (>60); Glucose 91 mg/dL (70-99); HEMOLYSIS < 15 (0-50); Potassium 5.2 mmol/L (3.4-5.1); Sodium 138 mmol/L (137-145)
== END ==
PROVIDERS: PCP Family Medicine; Referring Provider Family Medicine; Visit Provider Internal Medicine Cardiovascular Disease
DX: I48.3 Typical atrial flutter (principal)
CPT/HCPCS: 36415; 80048; 85025